=== PATIENT | female | born 1960 | race American Indian/Alaskan Native ===

== ENCOUNTER 2021-08-23 07:22 | Emergency (ER) | payer OTHER ==
[2021-08-23 08:32] LABS: Basophils % (Auto) 0.4 % (0.0-1.8); Eosinophils # (Auto) 0.1 K/mm3 (0.0-0.4); Hematocrit 42.8 % (30.3-42.9); Hemoglobin 13.9 gm/dl (10.1-14.3); Lymphocytes # (Auto) 1.6 K/mm3 (1.2-5.4); Lymphocytes % (Auto) 18.5 % (13.4-35.0); Mean Corpuscular HGB Conc 33 % (30-34); Mean Corpuscular Volume 86 fl (79-97); Monocytes # (Auto) 0.7 K/mm3 (0.0-0.8); Monocytes % (Auto) 8.7 % (0.0-7.3); Platelet Count 226 K/mm3 (140-440); Red Blood Count 4.96 M/mm3 (3.65-5.03)
[2021-08-23 08:53] LABS: BUN/Creatinine Ratio 18; Blood Urea Nitrogen 20 mg/dL (7-17); Calcium 9.3 mg/dL (8.4-10.2); Hemolysis Index 20
[2021-08-23] MEDS ORDERED: POTASSIUM CHLORIDE ER 20 MEQ TAB PO ONE (08:55)
[2021-08-23 09:50] LABS: Bilirubin,Urine NEG (Negative); Blood,Urine NEG (Negative); Color,Urine Yellow (Yellow); Protein,Urine <15 mg/dL mg/dL (Negative); Urobilinogen,Urine < 2.0 mg/dL (<2.0)
[2021-08-23 09:52] LABS: Mucus,Urine FEW /HPF; RBC,Urine < 1.0 /HPF (0.0-6.0)
[2021-08-23] MEDS ORDERED: LIDOCAINE-MPF (1%) 10 MG/1 ML VIAL 5 ML INFILTRATI ONE (09:58)
--- NOTE | 2021-08-23 10:01 | Emergency Department Report ---
ED General Adult HPI - General Chief complaint: Headache Stated complaint: WEAK/SWEATING/LIGHT HEADED PUI?: No Time Seen by Provider: 08/23/21 08:51 Source: patient Mode of arrival: Ambulatory Limitations: No Limitations - History of Present Illness Initial comments: Ms. Contreras is a pleasant 61-year-old that comes to the ER after feeling lightheaded this morning. She got up and was getting ready to report to work, which she reports she starts at 6 AM. She did not feel well so she came to the emergency room. She denies any complaints on exam other than a mild headache. She is neurologically intact she has normal vital signs. She denies chest pain or shortness of breath. She denies any dizziness, presyncope or syncope symptoms. She is ambulatory and neurologically intact. She denies abdominal pain. Denies nausea vomiting diarrhea. Denies back pain. She does endorse some dysuria. -: Sudden, hour(s) Consistency: intermittent Improves with: none Worsens with: none Associated Symptoms: denies other symptoms. denies: confusion, chest pain, cough, diaphoresis, fever/chills, headaches, loss of appetite, malaise, nausea/vomiting, rash, seizure, shortness of breath, syncope, weakness Treatments Prior to Arrival: none - Related Data Previous Rx's Medication Instructions Recorded Last Taken Type Sulfamethoxazole/Trimethoprim 1 each PO BID #10 tablet 08/23/21 Unknown Rx [Bactrim DS TAB] Allergies Allergy/AdvReac Type Severity Reaction Status Date / Time No Known Allergies Allergy Verified 08/23/21 07:48 ED Review of Systems ROS: Stated complaint: WEAK/SWEATING/LIGHT HEADED Other details as noted in HPI Comment: All other systems reviewed and negative ED Past Medical Hx - Past Medical History Previous Medical History?: Yes Hx Hypertension: Yes - Surgical History Past Surgical History?: No - Family History Family history: no significant - Social History Smoking Status: Never Smoker Substance Use Type: None - Medications Home Medications: Home Medications Medication Instructions Recorded Confirmed Last Taken Type Sulfamethoxazole/Trimethoprim 1 each PO BID #10 tablet 08/23/21 Unknown Rx [Bactrim DS TAB] ED Physical Exam - General Limitations: No Limitations General appearance: alert, in no apparent distress - Head Head exam: Present: atraumatic, normocephalic - Eye Eye exam: Present: normal appearance - ENT ENT exam: Present: mucous membranes moist - Neck Neck exam: Present: normal inspection - Respiratory Respiratory exam: Present: normal lung sounds bilaterally. Absent: respiratory distress - Cardiovascular Cardiovascular Exam: Present: regular rate, normal rhythm. Absent: systolic murmur, diastolic murmur, rubs, gallop - GI/Abdominal GI/Abdominal exam: Present: soft, normal bowel sounds - Extremities Exam Extremities exam: Present: normal inspection - Back Exam Back exam: Present: normal inspection - Neurological Exam Neurological exam: Present: alert, oriented X3 - Psychiatric Psychiatric exam: Present: normal affect, normal mood - Skin Skin exam: Present: warm, dry, intact, normal color. Absent: rash ED Course Vital Signs 08/23/21 08/23/21 07:46 10:34 Temperature 97.7 F 98.5 F Pulse Rate 62 70 Respiratory 18 16 Rate Blood Pressure 141/89 Blood Pressure 139/72 [Right] O2 Sat by Pulse 100 18 L Oximetry ED Medical Decision Making - Lab Data Result diagrams: 08/23/21 08:01 08/23/21 08:01 - EKG Data -: EKG Interpreted by [place] EKG shows normal: sinus rhythm Rate: normal - EKG Data When compared to previous EKG there are: no significant change Interpretation: no acute changes - Medical Decision Making Labs 08/23/21 08/23/21 08/23/21 08:01 08:01 Unknown WBC 8.4 RBC 4.96 Hgb 13.9 Hct 42.8 MCV 86 MCH 28 MCHC 33 RDW 13.0 L Plt Count 226 Lymph % (Auto) 18.5 [place] % (Auto) 8.7 H Eos % (Auto) 1.0 Baso % (Auto) 0.4 Lymph # (Auto) 1.6 [place] # (Auto) 0.7 Eos # (Auto) 0.1 Baso # (Auto) 0.0 Seg Neutrophils % 71.4 H Seg Neutrophils # 6.0 Sodium 136 L Potassium 3.5 L Chloride 98.2 Carbon Dioxide 25 Anion Gap 16 BUN 20 H Creatinine 1.1 Estimated GFR 51 BUN/Creatinine Ratio 18 Glucose 69 Calcium 9.3 Troponin T < 0.010 Urine Color Yellow Urine Turbidity Clear Urine pH 6.0 Ur Specific [place] 1.011 Urine Protein <15 mg/dl Urine Glucose (UA) Neg Urine Ketones Neg Urine Blood Neg Urine Nitrite Neg Urine Bilirubin Neg Urine Urobilinogen < 2.0 Ur Leukocyte Esterase Lg Urine WBC (Auto) 5.0 Urine RBC (Auto) < 1.0 U Epithel Cells (Auto) 1.0 Urine Mucus Few Vital Signs 08/23/21 07:46 Temperature 97.7 F Pulse Rate 62 Respiratory 18 Rate Blood Pressure 141/89 O2 Sat by Pulse 100 Oximetry Twelve-lead EKG noted. Troponin negative. Labs noted. K REPLACED-patient has had no nausea vomiting or diarrhea Urine noted with large leukocytes. Given the context of dysuria and treating her for UTI. Patient is postmenopausal. ROCEPHIN IM GIVEN X 1 WBC 8. No abdominal tenderness. No CVA tenderness. No fever or chills. On discharge exam patient is ambulatory, taking p.o. reports feeling much better: Remains in no acute distress. Patient being discharged home with discharge plan of care including diet, activity, medications and follow-up. Patient is being discharged home on Bactrim. She will follow-up with PCP at the completion of antibiotics to make sure this is gone away. She verbalizes understanding of plan of care. - Differential Diagnosis Rule out arrhythmia, ACS, infectious etiology of symptoms Critical care attestation.: If time is entered above; I have spent that time in minutes in the direct care of this critically ill patient, excluding procedure time. ED Disposition Clinical Impression: Hypokalemia UTI (urinary tract infection) Qualifiers: Urinary tract infection type: site unspecified Hematuria presence: without hematuria Qualified Code(s): N39.0 - Urinary tract infection, site not specified Disposition: HOME / SELF CARE / HOMELESS Is pt being admited?: No Does the pt Need Aspirin: No Condition: Stable Instructions: Urinary Tract Infection, Adult Additional Instructions: CONTINUE HOME BP MEDS EAT POTASSIUM RICH FOODS BANANA/ORANGES ANTIBIOTIC UNTIL GONE FOLLOW UP WITH PCP AFTER YOU FINISH ANTIBIOTIC TO BE SURE THIS GOES AWAY STAY WELL HYDRATED WITH WATER MOTRIN OR TYLENOL FOR PAIN DIET AND ACTIVITY TOLERATED Prescriptions: Sulfamethoxazole/Trimethoprim [Bactrim DS TAB] 1 each PO BID #10 tablet Referrals: MICHELLE KAYE MD [Staff Physician] - 3-5 Days Forms: Work/School Release Form(ED) Time of Disposition: 10:00
[2021-08-23 10:34] VITALS: BP 139/72
--- NOTE | 2021-08-24 18:51 | Electrocardiograph Report ---
[facility] Test Date: 2021-08-23 Test Time: 07:53:42 Pat Name: NICO BROCK Department: Room: Gender: F Healthcare Facility Administrator: NURSE : 1960 Requested By: PEG MARTINEZ Order Number: [id number] Reading MD: Faith Bone Measurements Intervals [place] Rate: 56 P: 53 GA: 111 QRS: 22 QRSD: 87 T: -12 QT: 413 QTc: 399 Interpretive Statements Sinus rhythm No previous ECG available for comparison Electronically Signed On 08-24-2021 18:51:10 EDT by Faith Bone
== END 2021-08-23 10:32 | disposition home or self-care (01) ==
LOC: ED 07:22
DX: N39.0 Urinary tract infection, site not specified (principal); E87.6 Hypokalemia; I10 Essential (primary) hypertension
CPT/HCPCS: 36415; 80048; 81001; 84484; 85025; 93005; 96372; 99283; J0696; J3490